=== PATIENT | male | born 1965 | race American Indian/Alaskan Native ===

== ENCOUNTER 2016-07-14 08:28 | Emergency (ER) | payer SELFPAY ==
[2016-07-14] MEDS ORDERED: TORADOL IM ONE (08:38)
[2016-07-14] MEDS ORDERED: NORCO 5/325 PO PRN (08:39)
[2016-07-14] MEDS ORDERED: DELTASONE PO ONE (08:39)
[2016-07-14 08:48] VITALS: BP 163/100
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
== END 2016-07-14 09:12 | disposition home or self-care (01) ==
LOC: ED 08:28
DX: M10.09 Idiopathic gout, multiple sites (principal)
CPT/HCPCS: 96372; 99282; J1885; J7512

== ENCOUNTER 2016-10-27 04:11 | Emergency (ER) | payer OTHER ==
[2016-10-27] MEDS ORDERED: MORPHINE IV ONE (04:45)
[2016-10-27] MEDS ORDERED: TORADOL IV ONE (04:45)
[2016-10-27] MEDS ORDERED: ZOFRAN IV ONE (04:45)
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
[2016-10-27 05:03] LABS: Basophils % (Auto) 0.5 % (0.0-1.8); Eosinophils % (Auto) 0.9 % (0.0-4.3); Hematocrit 43.3 % (35.5-45.6); Hemoglobin 14.6 gm/dl (11.8-15.2); Mean Corpuscular HGB Conc 34 % (32-34); Mean Corpuscular Hemoglobin 35 pg (28-32); Mean Corpuscular Volume 103 fl (84-94); Platelet Count 234 K/mm3 (140-440); White Blood Count 11.4 K/mm3 (4.5-11.0)
[2016-10-27 05:23] LABS: Anion Gap 22 mmol/L; BUN/Creatinine Ratio 18.57; Blood Urea Nitrogen 13 mg/dL (9-20); Calcium 9.4 mg/dL (8.4-10.2); Carbon Dioxide 22 mmol/L (22-30); Chloride 94.9 mmol/L (98-107); Glucose 102 mg/dL (75-100); Potassium 3.7 mmol/L (3.6-5.0); Sodium 135 mmol/L (137-145)
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
[2016-10-27] MEDS ORDERED: PERCOCET 5/325 PO ONE (06:04)
[2016-10-27 06:50] VITALS: BP 142/89
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
== END 2016-10-27 06:50 | disposition home or self-care (01) ==
LOC: ED 04:11
DX: S16.1XXA Strain of muscle, fascia and tendon at neck level, initial encounter (principal); S29.012A Strain of muscle and tendon of back wall of thorax, initial encounter; S20.219A Contusion of unspecified front wall of thorax, initial encounter; S50.02XA Contusion of left elbow, initial encounter; V49.9XXA Car occupant (driver) (passenger) injured in unspecified traffic accident, initial encounter; Y93.89 Activity, other specified; Y99.9 Unspecified external cause status; Y92.410 Unspecified street and highway as the place of occurrence of the external cause
CPT/HCPCS: 36415; 71250; 72125; 73080; 80048; 85025; 96374; 96375; 99284; J1885; J2270; J2405

== ENCOUNTER → 2018-02-25 | Outpatient (CLI) | payer OTHER ==
--- NOTE | 2018-02-25 08:19 | Cat Scan Report ---
CT CHEST WITH CONTRAST INDICATION: Chest mass. COMPARISON: 10/27/2016. FINDINGS: Chest CT performed following intravenous administration of 100 cc of Omnipaque 300. Stable, normal heart size. No aortic aneurysm or dissection. Suboptimal pulmonary arterial opacification. Patent central airway. No size significant adenopathy. Normal imaged thyroid. Subtle previous right upper lobe nodularity has resolved. Instead, small, approximately 2.8 x 1.4 cm right upper lobe groundglass haziness now noted as on axial series 3, images 67-82. Slight nonspecific distal esophageal wall prominence/thickening, not excluded for gastroesophageal reflux and/or hiatal hernia, amongst others. Slight gynecomastia again noted. Imaged upper abdomen demonstrates diffuse gallbladder wall/mucosal enhancement, though nonspecific. Approximately 1/3rd loss of T6 vertebral body height/superior endplate depression slightly more pronounced since the prior exam. Multilevel mid to lower thoracic slight vacuum disc phenomena also noted. CONCLUSION: 1. Interval resolution of slight nonspecific right upper lung nodular densities since October 2016. However, small right upper lobe groundglass haziness is new, again possibly infectious or inflammatory, amongst others. 2. Mild mid to lower thoracic spine degenerative changes with interval progression about T6, as described. 3. Few other incidental findings, including nonspecific gallbladder wall/mucosal enhancement. Thank you for the opportunity to participate in this patient's care.
== END | disposition home or self-care (01) ==
LOC: CT 07:05
PROVIDERS: ATTEND Family Medicine
DX: M47.894 Other spondylosis, thoracic region (principal); R91.1 Solitary pulmonary nodule
CPT/HCPCS: 71260; Q9967